=== PATIENT | male | born 1995 | race Caucasian/White ===

== ENCOUNTER 2018-03-28 03:09 | Observation (INO) ==
[2018-03-28] MEDS ORDERED: 0.9 % SODIUM CHLORIDE 1,000 ML IV ONE ×2 (03:26→05:03)
[2018-03-28] MEDS ORDERED: ONDANSETRON 4 MG/2 ML VIAL IV ONE ×2 (03:26→04:14)
[2018-03-28 04:13] LABS: Basophils # (Auto) 0 K/mcL (0.0-0.3); Basophils % (Auto) 0.2 % (0.0-2.0); Eosinophils # (Auto) 0.1 K/mcL (0.0-0.7); Eosinophils % (Auto) 0.7 % (0.0-7.0); Granulocytes % (Auto) 71.3 % (38.0-78.0); Lymphocytes # (Auto) 1.7 K/mcL (1.5-4.8); Mean Cell Volume 91.6 fL (80.0-100.0); Mean Corpuscular HGB Conc 33.3 g/dL (31.0-36.0); Mean Corpuscular Hemoglobin 30.5 pg (26.0-34.0); Monocytes % (Auto) 9.8 % (1.0-12.0); Platelet Count 270 K/mcL (140-440); RBC 4.74 M/mcL (4.50-5.90); Red Cell Distribution Width 11.7 % (11.5-14.5)
[2018-03-28 04:30] LABS: ALT/SGPT 143 U/l (0-40); Albumin 4.9 gm/dL (3.2-5.2); Albumin/Globulin Ratio 1.6 (1.0-2.3); Alkaline Phosphatase 179 U/L (39-117); Blood Urea Nitrogen 12 mg/dl (6-20)
[2018-03-28] MEDS ORDERED: PROMETHAZINE 25 MG/ML VIAL IV ONE (04:52)
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
[2018-03-28] MEDS ORDERED: METOCLOPRAMIDE 10 MG/2 ML VIAL IV ONE ×2 (05:45→06:01)
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
[2018-03-28 06:10] LABS: Appearance,Urine HAZY; Bacteria,Urine 0 /hpf (0); Bilirubin,Urine NEG (NEG); Calcium Oxalate Crystals,Urine MOD /hpf (0); Color,Urine YELLOW; Glucose,Urine (UA) NEGATIVE (NEG); Leukocyte Esterase,Urine NEG /uL (NEG); Mucus,Urine MANY /hpf (0); Protein,Urine 100 mg/dL (NEG); Specific Gravity,Urine 1.028 (1.000-1.035); Urine Blood >=1.0 mg/dL (<0.03); Urine Hyaline Cast 4 /lpf (0-2); Urine RBC 139 /hpf (0-1); Urine Squamous Epithelial Cell < 1 /hpf (0-4); Urine Transitional Epi Cells 2 /hpf (0-2); Urine WBC 3 /hpf (0-4); Urobilinogen,Urine NEG (NEG)
[2018-03-28 06:29] LABS: Amphetamine Screen,Urine NONE DETECTED (NONDETECTED); Benzodiazepines Screen,Urine NONE DETECTED (NONDETECTED); Cocaine Screen,Urine NONE DETECTED (NONDETECTED); Opiate Screen,Urine NONE DETECTED (NONDETECTED); Oxycodone, Urine Screen SUSPECT POSITIVE (NONDETECTED)
[2018-03-28] MEDS ORDERED: ACETAMINOPHEN 325 MG TABLET PO PRN (07:05)
[2018-03-28] MEDS ORDERED: morphine 15 MG TABLET PO PRN (07:05)
[2018-03-28] MEDS ORDERED: PROMETHAZINE 25 MG/ML VIAL IV PRN (07:05)
[2018-03-28] MEDS ORDERED: ONDANSETRON 4 MG/2 ML VIAL IV PRN (07:05)
[2018-03-28] MEDS: DEXTROSE 5%-LR W/20MEQ KCL 1,000 ML IV SCH ×2 (07:15→15:17)
[2018-03-28] MEDS ORDERED: HYDROmorphone 2 MG TABLET PO PRN (07:26)
[2018-03-28] MEDS: PANTOPRAZOLE 40 MG VIAL IV SCH ×2 (07:50→17:19)
[2018-03-28] MEDS: KETOROLAC 30 MG/ML VIAL IV PRN ×2 (07:51→19:11)
[2018-03-28] MEDS: 0.9 % SODIUM CHLORIDE 10 ML SYRINGE IV SCH ×3 (07:51→22:11)
[2018-03-28] MEDS: METOCLOPRAMIDE 10 MG/2 ML VIAL IV SCH ×3 (07:51→18:59)
[2018-03-28] MEDS: ENOXAPARIN 40 MG/0.4 ML SYRINGE SQ SCH (07:52)
[2018-03-28] MEDS: GABAPENTIN 100 MG CAPSULE PO SCH ×2 (13:20→22:11)
[2018-03-29] MEDS: DEXTROSE 5%-LR W/20MEQ KCL 1,000 ML IV SCH ×2 (00:06→08:10)
[2018-03-29] MEDS: METOCLOPRAMIDE 10 MG/2 ML VIAL IV SCH ×2 (00:07→05:51)
[2018-03-29] MEDS: KETOROLAC 30 MG/ML VIAL IV PRN (00:58)
[2018-03-29] MEDS: 0.9 % SODIUM CHLORIDE 10 ML SYRINGE IV SCH (05:10)
[2018-03-29] MEDS: GABAPENTIN 100 MG CAPSULE PO SCH (05:51)
[2018-03-29 06:41] LABS: ALT/SGPT 87 U/l (0-40); Albumin/Globulin Ratio 1.8 (1.0-2.3); Alkaline Phosphatase 137 U/L (39-117); Blood Urea Nitrogen 8 mg/dl (6-20)
[2018-03-29] MEDS: PANTOPRAZOLE 40 MG VIAL IV SCH (08:11)
[2018-03-29] MEDS: ENOXAPARIN 40 MG/0.4 ML SYRINGE SQ SCH (08:44)
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
== END 2018-03-29 10:15 | disposition home or self-care (01) ==
LOC: ED 03:09 → MEDSUR 03:09
PROVIDERS: ADMIT Internal Medicine; ATTEND Internal Medicine
CPT/HCPCS: 97161; 97166; 99217; 99220; G8978; G8979; J1650; J1885; J2270; J2405; J2550; J2765; J7030